=== PATIENT | female | born 1965 | race Caucasian/White ===

== ENCOUNTER 2017-11-12 20:12 | Emergency (ER) | payer SELFPAY ==
[~2017-11-12] VITALS: Ht 162.6 cm; Wt 72.6 kg
[2017-11-12 20:14] VITALS: BP_SYST 145
--- NOTE | 2017-11-12 20:19 | NUR ---
Patient to ER bed 2 to gown for evaluation. Side rails up. Report given to Nidhi HICKS.
--- NOTE | 2017-11-12 20:32 | NUR ---
Patient AOx4, brought in by ambulance BLS, for complaint of chronic back pain. Patient had an injury at work 2 years ago. Patient states she currently has prescription for Naprosyn but is ineffective. Patient has taken [place] and Tramadol in the past and is effective. No c/o pain at this time. Patient given Morphine 4mg on route to ER. No other symptoms or complaints at this time.
--- NOTE | 2017-11-12 23:43 | NUR ---
JAYLEEN Perera at bedside for medical evaluation.
[2017-11-12 23:55] VITALS: BP_SYST 135
--- NOTE | 2017-11-12 23:55 | NUR ---
Patient given written and verbal discharge instructions and verbalizes understanding. ER MD discussed with patient the results and treatment provided. Patient in stable condition. ID arm band removed. Rx of Tramadol and Flexeril given. Patient educated on pain management and to follow up with PMD. Pain Scale 2/10 tolerable to patient. Opportunity for questions provided and answered.
== END 2017-11-12 23:55 | disposition home or self-care (01) ==
LOC: SED 20:12
DX: G89.29 Other chronic pain (principal); M54.5 Low back pain; R42 Dizziness and giddiness
CPT/HCPCS: 99283